=== PATIENT | female | born 1980 | race Caucasian/White ===

== ENCOUNTER 2020-09-11 12:54 | Inpatient (IN) | payer MEDICAID ==
[~2020-09-11] VITALS: Ht 157.5 cm; Wt 50.0 kg
[2020-09-11 13:29] LABS: BASOPHILS 0.3 % (0-2); EOSINOPHILS 1.7 % (0-7); HEMATOCRIT 41.2 % (36.0-48.0); HEMOGLOBIN 14.2 g/dL (12-16); IMMATURE GRANULOCYTES 0.4 % (0-5); LYMPHOCYTE ABS# 1.24 10x3/uL (1.18-3.74); LYMPHOCYTES 9.7 % (15-50); MCH 31.5 pg (26.0-34.0); MCHC 34.5 g/dL (31.0-37.0); MCV 91.4 fL (80.0-100.0); MEAN PLATELET VOLUME 10.1 fL (7.4-10.4); MONOCYTES 5.3 % (2-11); NEUTROPHIL ABS# 10.51 10x3/uL (1.56-6.13); NEUTROPHILS 82.6 % (40-80); PLATELET COUNT 257 10x3/uL (130-400); RBC 4.51 10x6/uL (4.00-5.40); RDW 12.4 % (11.5-14.5); WBC 12.7 10x3/uL (4.8-10.8)
[2020-09-11 13:48] LABS: CALC OSMOLALITY 272 mosm/kg (275-300); CALCIUM 8.8 mg/dL (8.5-10.1); CARBON DIOXIDE 28.7 mmol/L (21.0-32.0); CHLORIDE - SERUM 99 mmol/L (98-107); CREATININE - SERUM 0.7 mg/dL (0.6-1.3); GLUCOSE 105 mg/dL (74-106); POTASSIUM - SERUM 3.8 mmol/L (3.5-5.1); SODIUM 137 mmol/L (136-145); UREA NITROGEN 9 mg/dL (7-18); eGFR NON AFRICAN AMERICAN > 90 mL/min (90-120)
[2020-09-11 13:56] LABS: ALBUMIN 3.7 g/dL (3.4-5.0); ALKALINE PHOSPHATASE 113 U/L (30-120); ALT (SGPT) 19 U/L (10-68); BILIRUBIN - TOTAL 0.38 mg/dL (0.2-1.3); MAGNESIUM - SERUM 2.1 mg/dL (1.8-2.4)
--- NOTE | 2020-09-11 14:52 | NUR ---
URINE COLLECTED AND SENT TO LAB.
[2020-09-11 14:57] LABS: UDS - AMPHET NEGATIVE QUAL (NEGATIVE); UDS - BARB NEGATIVE QUAL (NEGATIVE); UDS - BENZO POSITIVE QUAL (NEGATIVE); UDS - COCAINE NEGATIVE QUAL (NEGATIVE); UDS - OPIATE NEGATIVE QUAL (NEGATIVE); UDS - PCP NEGATIVE QUAL (NEGATIVE); UDS - THC POSITIVE QUAL (NEGATIVE)
[2020-09-11 15:07] LABS: BILIRUBIN NEGATIVE (NEGATIVE); KETONE NEGATIVE (NEGATIVE); NITRITE NEGATIVE (NEGATIVE); UROBILINOGEN NORMAL mg/dL (< 2)
[2020-09-11 15:08] LABS: BACTERIA FEW HPF (NONE SEEN); SQUAMOUS EPITHELIAL 1 HPF (0-4); WHITE CELLS - URINE 2 HPF (0-4)
[2020-09-11] MEDS ORDERED: ABILIFY10 MG PO ×2 (15:57→16:42)
[2020-09-11 15:59] VITALS: BP 111/69; Ht 157.5 cm; Wt 50.0 kg
--- NOTE | 2020-09-11 16:15 | NUR ---
PATIENT ADMITTED TO ROOM 2219. ADMISSION COMPLETE. SEIZURE PREC IN PLACE. DENIES NEEDS. WILL CONTINUE TO MONITOR.
--- NOTE | 2020-09-11 16:38 | NUR ---
PATIENT STATES USES "[facility] OR [facility]." STATES USES THE ONE ON [address]. DOES NOT KNOW HOME MEDICATIONS. CALLED [facility] [address] WHO STATES PATIENT DOES NOT USE THEM. CALLED [facility] [address] WHO STATES PATIENT USES [id number] IN [place].
[2020-09-11] MEDS ORDERED: PROTONIX40 MG PO (16:42)
--- NOTE | 2020-09-11 16:44 | NUR ---
MED LIST UPDATED WELL PHARMACY UPDATED TO [facility] IN [place].
--- NOTE | 2020-09-11 17:35 | NUR ---
PATIENT STATES HURT RIGHT ANKLE DURING PREVIOUS SEIZURE AND CAN'T WALK ON THAT FOOT. SPOKE WITH MADAY BEAN AND XRAY ORDER PLACED.
--- NOTE | 2020-09-11 18:47 | NUR ---
DR DODGE MADE AWARE OF CONSULT.
[2020-09-11 20:00] VITALS: BP 118/79
[2020-09-12] VITALS: BP 136/80
[2020-09-12 04:00] VITALS: BP 147/90
[2020-09-12 06:02] LABS: BASOPHILS 0.5 % (0-2); EOSINOPHILS 6.4 % (0-7); HEMATOCRIT 39.9 % (36.0-48.0); HEMOGLOBIN 13.4 g/dL (12-16); IMMATURE GRANULOCYTES 0.2 % (0-5); LYMPHOCYTE ABS# 2.55 10x3/uL (1.18-3.74); LYMPHOCYTES 25.8 % (15-50); MCHC 33.6 g/dL (31.0-37.0); MCV 92.4 fL (80.0-100.0); MEAN PLATELET VOLUME 10.7 fL (7.4-10.4); MONOCYTES 7.9 % (2-11); NEUTROPHIL ABS# 5.87 10x3/uL (1.56-6.13); NEUTROPHILS 59.2 % (40-80); PLATELET COUNT 270 10x3/uL (130-400); RBC 4.32 10x6/uL (4.00-5.40); RDW 12.6 % (11.5-14.5); WBC 9.9 10x3/uL (4.8-10.8)
[2020-09-12 06:31] LABS: ALBUMIN 3.3 g/dL (3.4-5.0); ALKALINE PHOSPHATASE 106 U/L (30-120); ALT (SGPT) 17 U/L (10-68); BILIRUBIN - TOTAL 0.79 mg/dL (0.2-1.3); CALC OSMOLALITY 272 mosm/kg (275-300); CALCIUM 8.8 mg/dL (8.5-10.1); CARBON DIOXIDE 27.5 mmol/L (21.0-32.0); CHLORIDE - SERUM 104 mmol/L (98-107); CREATININE - SERUM 0.6 mg/dL (0.6-1.3); GLUCOSE 97 mg/dL (74-106); MAGNESIUM - SERUM 2.1 mg/dL (1.8-2.4); POTASSIUM - SERUM 3.7 mmol/L (3.5-5.1); PROTEIN - SERUM 6.7 g/dL (6.4-8.2); SODIUM 137 mmol/L (136-145); UREA NITROGEN 9 mg/dL (7-18); eGFR NON AFRICAN AMERICAN > 90 mL/min (90-120)
--- NOTE | 2020-09-12 07:32 | NUR ---
HOME MEDS FOUND IN PATIENT'S ROOM THAT FRIEND BROUGHT TO HOSPITAL LAST NIGHT. COUNTED IN ROOM WITH PATIENT AND SECOND RN, SNEHA YOUSIF. SEALED MEDS IN [facility]. SIGNED BY PATIENT AND BOTH NURSES. PLACED IN BOTTOM OF CASSET TO BE LOCKED AWAY. SPOKE WITH [facility] IN PHARMACY WHO STATES WILL COME GET MEDS. MED FORM ON CHART.
--- NOTE | 2020-09-12 07:55 | NUR ---
ALERT AND ORIENTED. ASSESSMENT COMPLETE. DENIES NEEDS. BED LOW. CALL GASTELUM AND PERSONAL ITEMS IN REACH. WILL CONTINUE TO MONITOR.
[2020-09-12 10:07] VITALS: BP 135/89
--- NOTE | 2020-09-12 10:35 | NUR ---
CONSENTS OBTAINED FOR PROCEDURE SUNDAY. PATIENT REQUESTING NURSE TO CALL AND NOTIFY OF SITUATION. WILL CALL.
--- NOTE | 2020-09-12 10:41 | NUR ---
SPOKE WITH PADMINI, PATIENT'S "", PER HER REQUEST. PADMINI STATES HE IS PATIENT'S "EX ." STATES THEY HAVE "BEEN FOR 4 MONTHS." ALSO STATES THAT PATIENT "WALKED OUT ON HER FAMILY FOR DRUGS." MADE AWARE OF CURRENT SITUATION PER PATIENT REQUEST. ONLY RESPONSE FROM PADMINI WAS "SO SHE GOT OUT OF [facility] AND IS RIGHT BACK AT IT." INFORMED PADMINI THAT PATIENT STATES SHE LIVES WITH HIM AND HER KIDS BUT "ITS COMPLICATED." PADMINI STATES THAT PATIENT DOES NOT LIVE THERE AND IS NOT WELCOME THERE. STATES PATIENT IS HOMELESS AND NEEDS TO GO TO A INTERMEDIATE OR SOMEWHERE ELSE ON DISCHARGE AND THAT SHE "IS IN HER OWN WORLD."
--- NOTE | 2020-09-12 10:46 | NUR ---
PATIENT INFORMED THAT PADMINI WAS MADE AWARE OF SITUATION. WANTS HER MOM CALLED AND INFORMED ALSO. STATES WHEN SHE LEAVES HER SHE PLANS TO LIVE WITH HER FRIEND ARLETTE AND HIS AUNT. APPARENTLY THEY ARE GOING TO "HELP HER GET ON TRACK." STATES CAN'T GET INTO REHAB AND HAS TO DO OUPATIENT THERAPY AND HAS ALREADY TRIED. WILL CALL PATIENT'S MOM.
--- NOTE | 2020-09-12 10:52 | NUR ---
SPOKE WITH PATIENT'S MOM, BRUNO, ABOUT PATIENT PER PATIENT'S REQUEST. MOM STATES FAMILY HAS BEEN TRYING TO GET PATIENT TO GO TO REHAB FOR MONTHS. STATES PATIENT WAS IN REHAB IN [place]. SHE THINKS IT WAS CALLED "DAVE 3:16". STATES PATIENT LEFT REHAB AFTER A COUPLE OF DAYS STATING "ITS NOT WHAT I NEED. I NEED SOMETHING FOR MY BIPOLAR DISORDER." STATES PATIENT HAS BEEN REFUSING REHAB OTHERWISE. INFORMED THAT PATIENT WOULD LIKE HER TO COME STAY AT HOSPITAL WITH HER. MOM ASKED WHEN SURGERY WAS AND WAS TOLD IT WOULD BE SUNDAY. DENIES FURTHER QUESTIONS.
--- NOTE | 2020-09-12 11:07 | NUR ---
SPOKE WITH SCOTT IN CASE MANAGEMENT ABOUT PATIENT'S HISTORY AND CURRENT SITUATION. STATES WILL CONSULT WITH ELZA, CASE MANAGEMENT ABOUT SITUATION, AND WILL TALK TO MADAY BEAN ABOUT POSSIBLE PYSCH CONSULT IF APPROPRIATE.
[2020-09-12 13:29] LABS: HCG URINE NEGATIVE (NEGATIVE)
[2020-09-12 15:00] VITALS: BP 111/78
[2020-09-12 18:28] VITALS: BP 123/82
--- NOTE | 2020-09-12 19:20 | MORECARE ---
CASE MANAGEMENT DISCHARGE SUMMARY PATIENT: JOSELYN MONTERROSO UNIT: [id number] ADM DATE: 09/11/20 AGE: 39 : 82 SEX: F ROOM/BED: D.2219 AUTHOR: MARELY BRIGHT PHYSICIAN: REFERRING PHYSICIAN: SOFIYA EAGLE MD DATE OF SERVICE: 09/12/20 Case Management Discharge Planning Summary DCP REVIEW SUMMARY ANTICIPATED D/C DATE: EXPECTED LOS : CASE STATUS: DCP Initiated INITIAL REVIEW: 09/11/2020 INITIAL REVIEWER: Shlomo Montes FINAL DISCHARGE DISPOSITION: : FINAL REVIEWER: FINAL REVIEW DATE: DCP Focus Questions & Answers QUESTION: ANSWER : PATIENT: JOSELYN MONTERROSO ENCOUNTER: [id number] MEDICAL RECORD#: [id number] ADMISSION DATE: 09/11/2020 DISCHARGE DATE: ATTENDING MD: SOFIYA AHUJA : AGE: 39 MARITAL STATUS: M DC PLAN ID: [id number] FACILITY: [facility] PRINTED ON: 09/12/20 19:20 CT All edits/amendments must be made on the electronic document DICTATION DATE: 09/12/201919 REVENUE ENFORCEMENT AGENT: ISHA 09/12/201919 RPT#: [id number] DC DATE: STATUS: ADM IN [facility] [address] [place] [address] END OF REPORT
[2020-09-12 19:41] VITALS: BP 115/79
--- NOTE | 2020-09-13 01:01 | NUR ---
I have reviewed this patient and I concur with the Shift Assessment completed by the Licensed Practical Nurse today this shift.
[2020-09-13 06:24] LABS: BASOPHILS 0.5 % (0-2); EOSINOPHILS 9.6 % (0-7); HEMATOCRIT 35.7 % (36.0-48.0); HEMOGLOBIN 11.8 g/dL (12-16); IMMATURE GRANULOCYTES 0.1 % (0-5); LYMPHOCYTE ABS# 2.47 10x3/uL (1.18-3.74); LYMPHOCYTES 30.4 % (15-50); MCH 30.8 pg (26.0-34.0); MCHC 33.1 g/dL (31.0-37.0); MCV 93.2 fL (80.0-100.0); MEAN PLATELET VOLUME 10.4 fL (7.4-10.4); MONOCYTES 7.7 % (2-11); NEUTROPHILS 51.7 % (40-80); PLATELET COUNT 219 10x3/uL (130-400); RBC 3.83 10x6/uL (4.00-5.40); RDW 12.5 % (11.5-14.5); WBC 8.1 10x3/uL (4.8-10.8)
[2020-09-13 06:53] LABS: ALBUMIN 2.8 g/dL (3.4-5.0); ALKALINE PHOSPHATASE 90 U/L (30-120); ALT (SGPT) 13 U/L (10-68); BILIRUBIN - TOTAL 0.33 mg/dL (0.2-1.3); CALC OSMOLALITY 282 mosm/kg (275-300); CALCIUM 8.3 mg/dL (8.5-10.1); CARBON DIOXIDE 25.9 mmol/L (21.0-32.0); CHLORIDE - SERUM 109 mmol/L (98-107); CREATININE - SERUM 0.7 mg/dL (0.6-1.3); GLUCOSE 98 mg/dL (74-106); MAGNESIUM - SERUM 1.8 mg/dL (1.8-2.4); POTASSIUM - SERUM 4.1 mmol/L (3.5-5.1); PROTEIN - SERUM 5.6 g/dL (6.4-8.2); SODIUM 143 mmol/L (136-145); UREA NITROGEN 7 mg/dL (7-18); eGFR NON AFRICAN AMERICAN > 90 mL/min (90-120)
[2020-09-13 09:22] VITALS: BP 114/70
--- NOTE | 2020-09-13 11:30 | NUR ---
FATEMEH IS VERY TEARFL THIS MORNING, STATES SOMEONE TOLD HER SHE IS + FOR ALCOHOL WELL BENZOS AND SHE SAYS SHE DID NOT DRINK. EXPLAINED SHE WAS ADMINISTERED ATIVAN IN ER AND MAY BE WHY SHE IS + FOR BENZOS BUT UNABLE TO EXPLAIN ALCOHOL, PT STATES SHE IS SCARED AND CONFIUSED WHAT IS GOING ON. EXPLAINED SHE IS ADMITTED FOR SEIZURES AND SHE WILL ALSO HAVE SURGERY ON ANKLE TOMORROW. PATIENT SEEMD A LITTLE CALMER CONTINUE WITH PLAN OF CARE
[2020-09-13 14:42] VITALS: BP 116/68
--- NOTE | 2020-09-13 14:50 | NUR ---
I have reviewed this patient and I concur with the Shift Assessment completed by the Licensed Practical Nurse today this shift.
[2020-09-13 18:55] VITALS: BP 103/66
[2020-09-13 20:00] VITALS: BP 1168/85
--- NOTE | 2020-09-13 22:12 | NUR ---
PT RESTING IN BED. NO COMPLAINTS OF PAIN NOR DISTRESS NOTED. PT WAS ASSISTED WITH WASHING HER HAIR AND A CHG BATH. ABLE TO MAKE WANTS AND NEEDS KNOWN CLEARLY. BED IN LOWEST POSITION AND CALL LIGHT IN REACH.
[2020-09-14] VITALS: BP 134/105
[2020-09-14 04:00] VITALS: BP 123/82
[2020-09-14 04:50] LABS: BASOPHILS 0.5 % (0-2); EOSINOPHILS 8.2 % (0-7); HEMATOCRIT 36.3 % (36.0-48.0); HEMOGLOBIN 12.2 g/dL (12-16); IMMATURE GRANULOCYTES 0.1 % (0-5); LYMPHOCYTE ABS# 2.84 10x3/uL (1.18-3.74); LYMPHOCYTES 35.1 % (15-50); MCHC 33.6 g/dL (31.0-37.0); MCV 92.1 fL (80.0-100.0); MEAN PLATELET VOLUME 10.9 fL (7.4-10.4); MONOCYTES 7.2 % (2-11); NEUTROPHIL ABS# 3.95 10x3/uL (1.56-6.13); NEUTROPHILS 48.9 % (40-80); PLATELET COUNT 253 10x3/uL (130-400); RBC 3.94 10x6/uL (4.00-5.40); RDW 12.2 % (11.5-14.5); WBC 8.1 10x3/uL (4.8-10.8)
[2020-09-14 05:14] LABS: ALBUMIN 2.8 g/dL (3.4-5.0); ALKALINE PHOSPHATASE 92 U/L (30-120); ALT (SGPT) 14 U/L (10-68); BILIRUBIN - TOTAL 0.14 mg/dL (0.2-1.3); CALC OSMOLALITY 279 mosm/kg (275-300); CALCIUM 8.4 mg/dL (8.5-10.1); CARBON DIOXIDE 27.7 mmol/L (21.0-32.0); CHLORIDE - SERUM 107 mmol/L (98-107); CREATININE - SERUM 0.6 mg/dL (0.6-1.3); GLUCOSE 93 mg/dL (74-106); MAGNESIUM - SERUM 2.1 mg/dL (1.8-2.4); POTASSIUM - SERUM 3.6 mmol/L (3.5-5.1); PROTEIN - SERUM 6.1 g/dL (6.4-8.2); SODIUM 141 mmol/L (136-145); eGFR NON AFRICAN AMERICAN > 90 mL/min (90-120)
[2020-09-14 05:24] LABS: UREA NITROGEN 10 mg/dL (7-18)
[2020-09-14 09:34] VITALS: BP 127/95
--- NOTE | 2020-09-14 10:44 | MORECARE ---
CASE MANAGEMENT DISCHARGE SUMMARY PATIENT: JOSELYN MONTERROSO UNIT: [id number] ADM DATE: 09/12/20 AGE: 39 : 82 SEX: F ROOM/BED: D.2219 AUTHOR: MARELY BRIGHT PHYSICIAN: REFERRING PHYSICIAN: SOFIYA EAGLE MD DATE OF SERVICE: 09/14/20 Case Management Discharge Planning Summary DCP REVIEW SUMMARY ANTICIPATED D/C DATE: EXPECTED LOS : CASE STATUS: DCP Initiated INITIAL REVIEW: 09/11/2020 INITIAL REVIEWER: Shlomo Montes FINAL DISCHARGE DISPOSITION: : FINAL REVIEWER: FINAL REVIEW DATE: DCP Focus Questions & Answers QUESTION: ANSWER : PATIENT: OJSELYN MONTERROSO ENCOUNTER: [id number] MEDICAL RECORD#: [id number] ADMISSION DATE: 09/12/2020 DISCHARGE DATE: ATTENDING MD: SOFIYA AHUJA : AGE: 39 MARITAL STATUS: M DC PLAN ID: [id number] FACILITY: [facility] PRINTED ON: 09/14/20 10:44 CT All edits/amendments must be made on the electronic document DICTATION DATE: 09/14/20 1044 PILOT BOAT CAPTAIN: DM 09/14/20 1044 RPT#: [id number] DC DATE: STATUS: ADM IN [facility] [address] [place] [address] END OF REPORT
--- NOTE | 2020-09-14 13:10 | NUR ---
I have reviewed this patient and I concur with the Shift Assessment completed by the Licensed Practical Nurse today this shift.
[2020-09-14 14:22] VITALS: BP 112/69
[2020-09-14 18:55] VITALS: BP 114/75
[2020-09-14 20:00] VITALS: BP 99/45
--- NOTE | 2020-09-14 22:17 | NUR ---
PT RESTING IN BED. HAD SURGERY TODAY ON ANKLE. PT STATES ANKLE IS STILL NUMB FROM THE SURGERY. PT EXPLAINED TO ME THAT THE FEELING IN HER FOOT FEELS LIKE WHEN SHE WAS DOING DRUGS. PT ENCOURAGED TO CALL FOR ASSISTANCE AND TO NOT GET UP BY HERSELF. PT IS ALERT AND ORIENTED X4. NO COMPLAINTS OF PAIN NOR DISTRESS NOTED AT THIS TIME. BED IN LOWEST POSITION AND CALL LIGHT IN REACH.
[2020-09-15] VITALS: BP 92/53
[2020-09-15 04:00] VITALS: BP 111/78
[2020-09-15 06:48] LABS: BASOPHILS 0.2 % (0-2); EOSINOPHILS 0.2 % (0-7); HEMATOCRIT 37.4 % (36.0-48.0); HEMOGLOBIN 12.7 g/dL (12-16); IMMATURE GRANULOCYTES 0.3 % (0-5); LYMPHOCYTE ABS# 1.59 10x3/uL (1.18-3.74); LYMPHOCYTES 13.9 % (15-50); MCH 31.3 pg (26.0-34.0); MCV 92.1 fL (80.0-100.0); MONOCYTES 5.1 % (2-11); NEUTROPHILS 80.3 % (40-80); PLATELET COUNT 285 10x3/uL (130-400); RBC 4.06 10x6/uL (4.00-5.40); RDW 12.4 % (11.5-14.5)
[2020-09-15 06:53] LABS: WBC 11.4 10x3/uL (4.8-10.8)
[2020-09-15 07:01] LABS: ALBUMIN 3.1 g/dL (3.4-5.0); ALKALINE PHOSPHATASE 93 U/L (30-120); ALT (SGPT) 16 U/L (10-68); BILIRUBIN - TOTAL 0.26 mg/dL (0.2-1.3); CALC OSMOLALITY 279 mosm/kg (275-300); CALCIUM 9.1 mg/dL (8.5-10.1); CARBON DIOXIDE 26.2 mmol/L (21.0-32.0); CHLORIDE - SERUM 105 mmol/L (98-107); CREATININE - SERUM 0.7 mg/dL (0.6-1.3); GLUCOSE 107 mg/dL (74-106); MAGNESIUM - SERUM 2.1 mg/dL (1.8-2.4); POTASSIUM - SERUM 3.6 mmol/L (3.5-5.1); PROTEIN - SERUM 6.4 g/dL (6.4-8.2); SODIUM 141 mmol/L (136-145); UREA NITROGEN 9 mg/dL (7-18); eGFR NON AFRICAN AMERICAN > 90 mL/min (90-120)
--- NOTE | 2020-09-15 07:15 | NUR ---
RESTING IN BED WITH EYES OPEN, ALERT AND ORIENTED. IV LOCATED TO LEFT FOREARM CURRING RUNNING 1/2NS @ 50ML. NO CURRENT S/S OF DISTRESS, DENIES CURRENT NEEDS, WILL CONT TO MONITOR.
[2020-09-15 08:56] VITALS: BP 118/78
--- NOTE | 2020-09-15 09:56 | OP ---
PATIENT NAME: JOSELYN FALCON MEDICAL RECORD: [id number] :84 LOCATION:D.[facility] [id number] ADMISSION DATE:09/12/20 SURGEON: ANDREW DODGE DO DATE OF OPERATION: 09/14/2020 PROCEDURE PERFORMED: Right ankle open reduction internal fixation. PREOPERATIVE DIAGNOSIS: Right distal fibula fracture. POSTOPERATIVE DIAGNOSIS: Right distal fibula fracture. INDICATIONS: Ms. Falcon is a 39-year-old female who had seizures and was brought to the hospital on Sunday, the . She was admitted and seemed to have ankle pain and had ankle deformity. X-rays were taken and she had a comminuted distal fibula fracture. I informed that we need to fix it and that she will be nonweightbearing for about 6 weeks and then slowly progressively put weight on it. She would be at risk for blood clots, infection, bleeding, damage to vessels in the area, continued pain, malunion, nonunion and she is okay with that and signed the consent. SURGEON: Andrew Dodge DO DESCRIPTION OF PROCEDURE: The patient received a block by anesthesia in the preoperative area, taken to the operative suite, placed in supine position, given general anesthetic and a gram of Ancef and LMA was placed. The right lower extremity was then prepped and draped in sterile fashion. A timeout was performed. everyone was in agreement with correct side, site, patient and procedure. I then exsanguinated the right lower extremity with an Esmarch, tourniquet was inflated to 350 mmHg, it was up for 15 minutes. I then made an incision on the lateral aspect of the leg. I made careful dissection down to the fracture site, reduced it, put the plate on the Fely stainless steel plate, and once it was in adequate position on AP and lateral, I put 4 distal locking screws and then 2 proximal screws in the plate and then removed the K-wire holding the plate and got x-rays on AP and mortise with the stress and the medial clear space did not widen, so I did not put a syndesmotic fixation. The lateral was also in good position. The tourniquet was then let down and the irrigated. Josemanuel Ornelas, certified surgical optometrist assistant, closed the skin with 2-0 Vicryl in inverted interrupted fashion. A ZipLine was placed on it and an Adaptic, 4 x 4s, ABD on the heel and cast padding and then a 4 x 30 splint placed posteriorly. She was then awakened and taken to recovery. Splint was secured with an Mendoza wrap and she was awakened and taken to recovery in stable condition. BLOOD LOSS: Minimal. COMPLICATIONS: None. TRANSINT:[id number] Voice Confirmation ID: [id number] DOCUMENT ID: [id number] OPERATIVE REPORT [id number] JOSELYN FALCON,ANDREW Bernal DO at 0956 CC: [id number] DICTATION DATE: 09/14/20 1338 HAM BONER: 09/14/20 1801 ADM IN [facility] [address] [place] [address]
[2020-09-15] MEDS ORDERED: VISTARIL50 MG PO (10:03)
[2020-09-15] MEDS ORDERED: BAYER CHEWABLE81 MG PO (10:03)
[2020-09-15] MEDS ORDERED: PERCOCET 5-3251 TAB PO (10:03)
[2020-09-15] MEDS ORDERED: KEPPRA500 MG PO ×2 (11:15→14:44)
[2020-09-15] MEDS ORDERED: NICODERM CQ1 EAC3 TRANSDERM (11:26)
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
--- NOTE | 2020-09-15 12:43 | NUR ---
WENT OVER PATIENT DC PAPERWORK WELL FOLLOW UP APPOINTMENTS. BROUGHT PATIENT MEDICATIONS BACK TO HER THAT WERE SEALED UP. IV DC WITH CATHETER INTACT, PATIENT PENDING CRUTCHES AND RIDE. CONTINUE WITH PLANOF CARE
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
[2020-09-15 12:59] VITALS: BP 134/88
--- NOTE | 2020-09-15 16:09 | NUR ---
DC`D HOME VIA WHEELCHAIR, PER HOSPITAL STAFF. NO CONCERNS.
== END 2020-09-15 16:11 | disposition home or self-care (01) | DRG 101 ==
LOC: D.ER 12:54 → OBSVTIME 15:00 → D.MS 15:00
PROVIDERS: Family Medicine; ADMIT Emergency Medicine; ATTEND Emergency Medicine
DX: R56.9 Unspecified convulsions (principal); R41.82 Altered mental status, unspecified; S82.891A Other fracture of right lower leg, initial encounter for closed fracture; X58.XXXA Exposure to other specified factors, initial encounter; I10 Essential (primary) hypertension; F12.10 Cannabis abuse, uncomplicated; Z72.0 Tobacco use